=== PATIENT | female | born 1960 | race Two or more races ===

== ENCOUNTER 2021-10-19 10:36 | Emergency (ER) | payer OTHER ==
[2021-10-19 10:41] VITALS: BP 125/66; PULSE 118; TEMP 98; BMI 21.6
[2021-10-19] MEDS ORDERED: KETOROLAC TROMETHAMINE 60 MG/2 ML VIAL IM ONE (11:55)
[2021-10-19] MEDS ORDERED: LIDOCAINE 5% TOPICAL PATCH TP ONE (11:55)
[2021-10-19] MEDS ORDERED: ACETAMINOPHEN 325 MG TABLET (FP) PO ONE (11:55)
[2021-10-19] MEDS ORDERED: METHOCARBAMOL 500 MG TABLET PO ONE (11:56)
[2021-10-19] MEDS ORDERED: LIDOCAINE 5% TOPICAL PATCH ONE (11:59)
[2021-10-19] MEDS ORDERED: KETOROLAC TROMETHAMINE 30 MG/1 ML VIAL ONE (11:59)
[2021-10-19] MEDS ORDERED: METHOCARBAMOL 500 MG TABLET ONE (11:59)
[2021-10-19] MEDS ORDERED: ACETAMINOPHEN 500 MG TABLET (FP) ONE (12:00)
== END 2021-10-19 12:23 | disposition home or self-care (01) ==
LOC: JERFT 10:36
PROC: 3E0233Z Introduction of Anti-inflammatory into Muscle, Percutaneous Approach (ICD-10-PCS; principal; 2021-10-19)
DX: M54.50 Low back pain, unspecified (principal)
CPT/HCPCS: 99284-25